=== PATIENT | female | born 1975 | race Caucasian/White ===

== ENCOUNTER → 2017-12-09 16:53 | Outpatient (CLI) | payer OTHER, SELFPAY | PROVIDERS: Family Provider Internal Medicine; PCP Internal Medicine; Visit Provider Chiropractor | DX: M54.12 Radiculopathy, cervical region (principal) | CPT/HCPCS: 72050 ==

== ENCOUNTER → 2017-12-16 16:54 | Outpatient (CLI) | payer OTHER, SELFPAY | PROVIDERS: Family Provider Internal Medicine; PCP Internal Medicine; Visit Provider Chiropractor | DX: M54.12 Radiculopathy, cervical region (principal) | CPT/HCPCS: 72141 ==

== ENCOUNTER 2018-08-21 13:08 | Emergency (ER) | payer OTHER, SELFPAY ==
[2018-08-21 13:10] VITALS: BP 139/83; PULSE 83; RESP 20; TEMP 37.1; O2SAT 98; BMI 45.6
--- NOTE | 2018-08-21 13:18 | EKG12_ITS ---
Test Reason : CP Blood Pressure : / mmHG Vent. Rate : 078 BPM Atrial Rate : 078 BPM P-R Int : 160 ms QRS Dur : 080 ms QT Int : 382 ms P-R-T Axes : 044 -31 042 degrees QTc Int : 435 ms Normal sinus rhythm Left axis deviation Low voltage QRS Septal infarct , age undetermined Abnormal ECG Confirmed by VISHNU PEARSON, KAJAL ([id number]), city editor DALE ESPINAL ([id number]) on 08/24/2018 9:57:09 AM Referred By: MILO
[2018-08-21 13:38] LABS: Absolute Neutrophil Count 4.2 X10^3/uL (2.0-7.7); Basophil# 0.04 X10^3/uL; Basophil% 0.6 % (0-1); Eosinophil# 0.27 X10^3/uL; Eosinophils% 3.9 % (0-5); Hematocrit 44.4 % (37-47); Hemoglobin 14.2 g/dl (12.0-15.0); Lymphocyte % 27.5 % (19-41); Mean Corpuscular Hgb 27.7 pg (27.0-32.0); Mean Corpuscular Volume 86.7 fL (81-99); Monocyte# 0.44 X10^3/uL; Monocyte% 6.4 % (0-10); Neutrophil # 4.24 X10^3/uL (2.7-7.7); Neutrophil % 61.5 % (47-70); Platelet Count 293 K/mm3 (150-450); RBC Distribution Width CV 17.1 % (11.6-14.6); RBC Distribution Width SD 54.1 fl (35.1-43.9); Red Blood Count 5.12 M/mm3 (4.2-5.4); White Blood Count 6.9 K/mm3 (4.4-11.0)
[2018-08-21 13:40] LABS: POSITIVE COUNT NO; POSITIVE DIFFERENTIAL NO; POSITIVE MORPHOLOGY NO
[2018-08-21 13:49] LABS: Internal QC Validated? YES +Cl - CLEAR BKGD; Pregnancy, Serum, hCG Quali. NEGATIVE Negative
[2018-08-21 13:53] LABS: Anion Gap 1 (5-15); BUN 9 mg/dL (7-18); BUN/Creat Ratio 14.6 RATIO (10-20); Calcium,Total 8.7 mg/dL (8.5-10.1); Chloride 108 mmol/L (98-107); Creatinine, Serum 0.62 mg/dL (0.55-1.02); EST Glomerular Filtration Rate 112 mL/min (>60); Est Glom Filt Rate - Afr Amer 135 mL/min (>60); Estimated Creatinine Clearance 104.19 ml/min; Glucose 114 mg/dL (74-106); Potassium 4.1 mmol/L (3.5-5.1); Sodium Level 136 mmol/L (136-145)
--- NOTE | 2018-08-21 15:05 | RAD_ITS ---
STUDY: X-RAY CHEST REASON FOR EXAM: Female, 43 years old. 4 month history of cough. TECHNIQUE: Single AP portable view of the chest. COMPARISON: None. FINDINGS: The lungs are clear and expanded. There is no demonstrated pleural abnormality. Normal size heart. Normal mediastinum and kamron. Normal visualized pulmonary arteries. Normal visualized aortic arch and descending thoracic aorta. Normal visualized thoracic spine. Normal visualized ribs, clavicles, and shoulders. There is no demonstrated abnormality of the visualized soft tissue structures of the upper abdomen. RAD/Chest 1 View (Portable) IMPRESSION: Normal x-ray examination of the chest. Electronically Signed: Gurvinder Carpio, at 15:21 EDT , Service support ,
--- NOTE | 2018-08-21 15:06 | US_ITS ---
STUDY: ABDOMINAL ULTRASOUND - RIGHT UPPER QUADRANT REASON FOR VISIT: Female, 43 years old. Right upper quadrant pain. TECHNIQUE: Ultrasound evaluation of the right upper quadrant was performed with real-time and static bass-scale imaging. TECHNICAL QUALITY: Adequate. COMPARISON: None. FINDINGS: Liver: The liver measures 23.4 cm. There is increased echogenicity consistent with fatty infiltration. The bile ducts are within normal limits. There is hepatic color flow. The direction of portal flow is hepatopetal. There is no demonstrated mass lesion. Gallbladder: Normal distended gallbladder. The gallbladder wall measures 2 mm. There is a negative sonographic Valle's sign. There is no pericholecystic fluid. There are no gallstones. Common Bile Duct (C.B.D.): The common bile duct measures 3 mm. Pancreas: The pancreatic head and body are within normal limits. The pancreatic tail is not visualized due to bowel gas. There is no demonstrated pancreatic mass or cyst. Right Kidney: Normal size of the right kidney. The right kidney measures 12.4 cm. Normal renal cortex. There is no demonstrated renal mass or cyst. There is no right hydronephrosis. US/Gallbladder IMPRESSION: Enlarged, fatty liver. No focal hepatic lesions identified. Normal gallbladder. Electronically Signed: Ubaldo Maier, at 16:22 EDT Tel , Service support ,
--- NOTE | 2018-08-21 15:08 | ED.VISSUMM ---
- ER Visit Summary Date of Service: 08/21/18 Chief Complaint: Right upper quadrant pain History of Present Illness: The patient is a 43 F with right upper quadrant pain for the past 3 days. She reports poor appetite and not wanting to eat. She denies vomiting. She had mild diarrhea. She reports having pneumonia for the past 4 months. She told her PCP it hurts to breathe and was sent to the ER for possible blood clot. Patient does still have her gallbladder. She states she never had trouble with her gallbladder in the past. Physical Examination: Vital signs unremarkable. Patient lying in bed no acute distress. Head neck examination unremarkable. Heart is regular rate and rhythm. Lung sounds are clear. Abdomen is soft with focal tenderness in the right upper quadrant. No guarding or rebound. Hypoactive bowel sounds are present throughout. Test Results: EKG is sinus at 78 with no sign of acute ischemia. Portable chest x-ray is normal. CBC and chemistry studies remarkable only for glucose of 114. LFTs and lipase normal. Urinalysis does show glucose but no sign of infection. D-dimer is normal at 0.27. Right upper quadrant ultrasound reveals normal gallbladder. No pericholecystic fluid or gallstones noted. No other acute findings noted. Emergency Department Course and Treatment: Patient was treated with morphine, Zofran, and IV fluids. On repeat evaluation pain is improved. She will be given prescriptions for Hannah and Zofran. She is already on an antacid. She will follow with her primary care physician for possible HIDA scan. Treatment Plan: [] Disposition: Discharge Impression: Abdominal pain, uncertain etiology This note was generated with [employer] dictation software. It may contain incorrect words, spelling, and punctuation that were not noted in review of the chart prior to signing ED Disposition - Plan for ED Patient: Disposition: Home or Assisted Living Instructions: ED Abdominal Pain Unkn Cause Prescriptions: Hydrocodone Bitart/Apap 5-325 [Hannah 5MG-325MG] 1 tablet PO Q6H PRN PRN 3 Days #10 tablet PRN Reason: Pain Ondansetron [Zofran Odt] 4 mg PO Q8H PRN PRN #10 tablet PRN Reason: Nausea Referrals: Domonique Mcdaniel MD [Primary Care Provider] - As soon as possible
[2018-08-21 15:42] LABS: D-Dimer Quantitative (DVT/PE) 0.27 FEU/ug/m (0.27-0.49)
[2018-08-21] MEDS: 0.9% Normal Saline 1,000 ML 150 ML IV (15:42)
[2018-08-21] MEDS: Ondansetron 4 MG/2 ML Vial IV (15:43)
[2018-08-21] MEDS: Morphine 4 MG/ML Syringe IV (15:43)
[2018-08-21 15:46] VITALS: BP 129/89; PULSE 77; PULSE 78; RESP 16; TEMP 36.7; O2SAT 97
[2018-08-21 15:54] LABS: AST(SGOT) 18 U/L (15-37); Alanine Aminotransfer ALT/SGPT 35 U/L (13-56); Albumin, Serum 3.4 g/dL (3.2-5.0); Alkaline Phosphatase 47 U/L (45-117); Globulin 3.8 g/dL (2.2-4.2); Lipase 91 U/L (73-393); Protein, Total 7.2 g/dL (6.4-8.2)
[2018-08-21 16:10] LABS: Bacteria 0 SEEN /hpf (None Seen); Mucous, Urine 0 SEEN /hpf (<or=2+); Red Blood Cells-Urine 0 SEEN /hpf (0-5); Squamous Epithelial Cells - UA 0 SEEN /hpf (5-10); White Blood Cells 0 SEEN /hpf (0-5)
[2018-08-21 16:12] LABS: Color, Urine Yellow (Yellow); Glucose, Dipstick 1000 mg/dl (Normal); Ketone-Dipstick Negative (Negative); Leukocyte Esterase-Dipstick 25 /ul (Negative); Nitrite-Dipstick Negative (Negative); Occult Blood-Urine Negative /ul (Negative); Protein-Dipstick Negative (Negative); Specific Gravity, Urine 1.015 (1.002-1.030); Urine Bilirubin Dipstick Negative (Negative); Urine Clarity Clear (Clear); Urine Urobilinogen Normal (Normal)
[2018-08-21 17:30] VITALS: BP 144/90; PULSE 67; RESP 16; O2SAT 99
== END 2018-08-21 17:31 | disposition home or self-care (01) ==
PROVIDERS: Emergency Provider Emergency Medicine; Family Provider Internal Medicine; PCP Internal Medicine
DX: R10.11 Right upper quadrant pain (principal); K21.9 Gastro-esophageal reflux disease without esophagitis; E11.9 Type 2 diabetes mellitus without complications; I10 Essential (primary) hypertension; Z87.891 Personal history of nicotine dependence; Z79.84 Long term (current) use of oral hypoglycemic drugs; Z79.899 Other long term (current) drug therapy
CPT/HCPCS: 71045; 76705; 80048; 80076; 81001; 83690; 84703; 85025; 85379; 93005; 96361; 96374; 96375; 99283; J7030; A4216; J2405

== ENCOUNTER 2025-01-04 14:20 | Emergency (ER) | payer OTHER, SELFPAY ==
[2025-01-04 14:23] VITALS: BP 147/95; PULSE 73; RESP 18; TEMP 36.7; O2SAT 100; BMI 36.6
--- NOTE | 2025-01-04 14:44 | EX.ED.DYSGE1 ---
HPI History of Present Illness Chief Complaint: General Illness Detail of Chief Complaint: Atraumatic bruising right lower quadrant and left lower quadrant Informant: patient Onset/Context/Timing Onset: Days (Early Tuesday morning after vomiting) Context: Sudden Onset Timing: Continuous Quality: Pain if someone touches the bruised area otherwise no pain Location: Right lower quadrant and see HPI narrative Current Severity: Gone Maximum Severity: Moderate Worsened by: Palpation Relieved by: Not touching the bruised area Associated Symptoms Associated Symptoms: 1 episode of diarrhea yesterday which is unusual for patient ti Narrative Narrative: Patient is a 49-year-old with history of achalasia, gastric paresis on no anticoagulant who presents with bruising right lower quadrant that was first noted early Tuesday morning. She has since developed a bruise left lower quadrant, laterally. The bruising in the right lower quadrant was noted after vomiting for 6 hours. She had no hematemesis or coffee-ground emesis. She has had little stool output. She has had decreased urine output. She was seen by her PCP who sent her to the emergency room for the bruising. Patient also has history of Sjogren's disease and difficult to say if she is more thirsty than normal. She states normally she has trouble moving her bowels. She had diarrhea last evening. And this has to do with her gastroparesis. She does have a history based on medication of hypercholesterolemia and type 2 diabetes. Prior similar symptoms: No Recent Illness/Hospitalization: No [facility] Medical History Diabetes Hypertension Home Medications ?Medication ?Instructions ?Recorded ?Last Taken ?Type atenolol 100 mg tablet 50 mg PO DAILY 08/21/18 Unknown History cevimeline 30 mg capsule 30 mg PO TID 08/21/18 Unknown History glimepiride 4 mg tablet 2 mg PO DAILY 08/21/18 Unknown History liraglutide 0.6 mg/0.1 mL (18 mg/3 1.8 mg SQ DAILY 08/21/18 Unknown History mL) subcutaneous pen injector metformin 1,000 mg tablet 1,000 mg PO BID 08/21/18 Unknown History atorvastatin 10 mg tablet 10 mg PO DAILY 12/27/19 Unknown History azithromycin 250 mg tablet 250 mg PO QDAY #12 tabs 12/27/19 Unknown Rx biotin 1 mg capsule 1 mg PO DAILY 12/27/19 Unknown History ibuprofen 200 mg capsule 200 mg PO Q6H PRN 12/27/19 Unknown History Allergy/AdvReac Type Severity Reaction Status Date / Time cephalexin (From Keflex) Allergy Swelling Verified 12/27/19 07:22 Penicillins Allergy Anaphylaxis Verified 12/27/19 07:22 sulfamethoxazole (From Allergy Hives Verified 12/27/19 07:22 Bactrim) trimethoprim (From Bactrim) Allergy Hives Verified 12/27/19 07:22 Opioids - Morphine Analogues AdvReac Nausea Verified 01/04/25 14:23 Family History no significant family his Social History Smoking Status: Former smoker ROS ROS ED Constitutional Constitutional ED: Denies chills, fever(s), subjective or sweats Eyes Eyes: Denies blurry vision or change in vision ENT ENT ED: Denies rhinorrhea or sore throat Cardiovascular Cardiovascular: Denies chest pain or palpitations Respiratory/Chest Respiratory/Chest: Denies cough, dyspnea or dyspnea on exertion Gastrointestinal Gastrointestinal: Reports abdominal pain, diarrhea, nausea and vomiting; Denies constipation or melena Genitourinary Genitourinary ED: Reports other Details: Decreased urine output ; Denies dysuria, hematuria or urinary frequency Musculoskeletal Musculoskeletal: Denies back pain Integumentary Reports other Details: Bruising that was previously described ; Denies rash Hematologic/Lymphatic Hematologic/Lymphatic: Reports systems reviewed and no addt'l complaints, except as documented EXAM Physical Exam Const Vital Signs: 01/04/25 14:23 01/04/25 16:21 Temperature 98.1 F Temperature Source Temporal Pulse Rate 73 68 Respiratory Rate 18 Blood Pressure 147/95 H 133/81 H Blood Pressure Mean 112 98 Pulse Ox 100 100 Oxygen Delivery Method Room Air Positive well nourished and well developed Constitutional Narrative: BMI is 36.6. General Appearance ED: well developed and NAD; Negative for pallor HEENT Reports dry mucous membranes HEENT Narrative: Head is atraumatic and cephalic. Ears normal. Posterior pharynx unremarkable. Mouth ED: Yes dry mucous membranes Mouth: dry mucous membranes Eyes PERRL and EOMs intact bilaterally General Eye ED: Negative for pale conjunctiva or scleral icterus Neck no lymphadenopathy, supple and no JVD Resp normal respiratory effort Cardio regular rate and regular rhythm GI non-distended and no masses; Negative for normal to inspection, nondistended, normoactive bowel sounds or non-tender GI Narrative: Patient has a large ecchymotic area right lower quadrant there are two circular areas that are clear and raised. They appear to be slightly elevated. She also bruise noted left lower quadrant the size of a dime. Patient has no guarding or peritoneal findings. She does report tenderness over the bruised areas. Extremity normal to inspection Extremity Narrative: There are no petechiae noted. Neuro oriented x3 and CN's II-XII intact bilaterally Sensorium / Orientation: alert Skin skin turgor normal General Skin Exam: Negative for jaundice or pallor MDM MDM MDM Narrative Medical decision making narrative: Will obtain coags to see if patient has a coagulopathy. CBC to assess white count platelet count as well as H&H. Because she has had poor p.o. intake decreased urine output will obtain BMP to assess renal function, CO2 anion gap and electrolytes. Also to assess glucose since she has type 2 diabetes with poor p.o. intake. UA to assess specific gravity. Also determine if she has ketones. Lab Data Attestation: I reviewed the patient's lab results. Lab results narrative: CBC is remarked for mild anemia with normal indices. Platelet count is normal. Coags are normal. Comprehensive metabolic panel is normal. UA is remarkable for ketones. Spec gravity cellular by 1.020. Labs: Laboratory Results - last 24 hr 01/04/25 01/04/25 15:10 15:55 WBC 7.0 RBC 4.24 Hgb 11.7 L Hct 36.1 L MCV 85.1 MCH 27.6 MCHC 32.4 RDW Std Deviation 46.0 H RDW Coeff of Khalida 14.8 H Plt Count 265 MPV 10.0 Immature Gran % (Auto) 0.300 Neut % (Auto) 55.9 Lymph % (Auto) 32.6 [place] % (Auto) 7.3 Eos % (Auto) 2.9 Baso % (Auto) 1.0 Absolute Neuts (auto) 3.9 Absolute Lymphs (auto) 2.27 Nucleated RBC % 0 PT 13.2 INR 1.0 APTT 25.6 Sodium 138 Potassium 3.7 Chloride 105 Carbon Dioxide 21.9 Anion Gap 11 BUN 4 Creatinine 0.76 Estim Creat Clear Calc 103.57 Est GFR (MDRD) Non-Af 96 BUN/Creatinine Ratio 5.3 L Glucose 98 Lactic Acid 1.6 Calcium 9.1 Total Bilirubin 0.62 AST 13 ALT 10 Alkaline Phosphatase 47 Total Protein 6.5 Albumin 3.9 Globulin 2.6 Albumin/Globulin Ratio 1.5 Urine Color Yellow Urine Clarity Sl. Cloudy Urine pH 6.0 Ur Specific [place] 1.020 Urine Protein 30 H Urine Glucose (UA) Normal Urine Ketones 5 H Urine Occult Blood Negative Urine Nitrite Negative Urine Bilirubin Negative Urine Urobilinogen Normal Ur Leukocyte Esterase 100 H Treatment and Re-Evaluation :: Patient was informed of results. Since she had significant vomiting 4 hours suspect this is traumatic due to the vomiting. Discharge Plan Triage Chief Complaint: General Illness ED Provider: Ignacio Jiménez Dx/Rx/DC Orders Clinical Impression: Nausea & vomiting, Dehydration, mild, Ketosis, Traumatic ecchymosis of abdominal wall, Type 2 diabetes mellitus, Elevated blood pressure reading Instructions: ED Hematoma Prescriptions: No Action atorvastatin 10 mg tablet 10 mg PO DAILY ibuprofen 200 mg capsule 200 mg PO Q6H PRN biotin 1 mg capsule 1 mg PO DAILY azithromycin 250 mg tablet 250 mg PO QDAY Qty: 12 0RF Rx Instructions: 2 tablets today, then 1 tablet daily on days 2 through 11 atenolol 100 MG tablet 50 mg PO DAILY Patient Comments: TAKE 1/2 (ONE-HALF) OF A TABLET BY MOUTH EVERY DAY glimepiride 4 MG tablet 2 mg PO DAILY cevimeline 30 MG capsule 30 mg PO TID Patient Comments: take 1 capsule by mouth three times a day metformin 1,000 MG tablet 1,000 mg PO BID liraglutide 0.6 MG/0.1 ML pen injector 1.8 mg SQ DAILY Primary Care Provider: Domonique Mcdaniel Referrals: Domonique Mcdaniel MD [Primary Care Provider] - As Needed Print Language: Mongolian Disposition Disposition: Home, Self Care
[2025-01-04 15:18] LABS: Hematocrit 36.1 % (37-47); Hemoglobin 11.7 g/dL (12.0-15.0); Immature Granulocytes Count 0.020 X10^3/uL (0.0-0.0); Mean Corp Hgb Conc 32.4 g/dL (32-36); Mean Corpuscular Volume 85.1 fL (81-99); Mean Platelet Vol. 10.0 fl (6.2-12.0); NRBC Flagged by Analyzer 0 % (0-5); Platelet Count 265 K/mm3 (150-450); RBC Distribution Width CV 14.8 % (11.6-14.6); RBC Distribution Width SD 46.0 fl (35.1-43.9); Red Blood Count 4.24 M/mm3 (4.2-5.4); White Blood Count 7.0 K/mm3 (4.4-11.0)
[2025-01-04 15:36] LABS: Prothrombin Time (Protime)PT. 13.2 SECONDS (11.7-14.9)
[2025-01-04 15:37] LABS: Partial Thromboplast Time 25.6 Seconds (24.1-36.2)
[2025-01-04 15:59] LABS: AST(SGOT) 13 U/L (<=31); Alanine Aminotransfer ALT/SGPT 10 U/L (<=34); Albumin, Serum 3.9 g/dL (3.5-5.0); Alkaline Phosphatase 47 U/L (35-104); Anion Gap 11 (5-15); BUN 4 mg/dL (4-19); BUN/Creat Ratio 5.3 RATIO (10-20); Calcium,Total 9.1 mg/dL (7.6-11.0); Carbon Dioxide 21.9 mmol/L (21.0-32.0); Chloride 105 mmol/L (98-108); Estimated Creatinine Clearance 103.57 ml/min (50-250); Globulin 2.6 g/dL (2.2-4.2); Glucose 98 mg/dL (70-99); Potassium 3.7 mmol/L (3.3-5.1)
[2025-01-04 16:20] LABS: Color, Urine Yellow (Yellow); Glucose, Dipstick Normal (Normal); Ketone-Dipstick 5 mg/dl (Negative); Leukocyte Esterase-Dipstick 100 /ul (Negative); Nitrite-Dipstick Negative (Negative); Occult Blood-Urine Negative /ul (Negative); Protein-Dipstick 30 mg/dl (Negative); Specific Gravity, Urine 1.020 (1.002-1.030); Urine Bilirubin Dipstick Negative (Negative)
[2025-01-04 16:21] VITALS: BP 133/81; PULSE 68; O2SAT 100
[2025-01-04 17:53] VITALS: BP 131/76; PULSE 72; RESP 18; TEMP 36.6; O2SAT 98
== END 2025-01-04 17:59 | disposition home or self-care (01) ==
PROVIDERS: Emergency Provider Emergency Medicine; PCP Internal Medicine; Visit Provider Emergency Medicine
DX: R11.2 Nausea with vomiting, unspecified (principal); E88.89 Other specified metabolic disorders; E11.43 Type 2 diabetes mellitus with diabetic autonomic (poly)neuropathy; Z87.891 Personal history of nicotine dependence; R03.0 Elevated blood-pressure reading, without diagnosis of hypertension; K31.84 Gastroparesis; S30.1XXA Contusion of abdominal wall, initial encounter; E78.00 Pure hypercholesterolemia, unspecified; R86.0 Abnormal level of enzymes in specimens from male genital organs; X58.XXXA Exposure to other specified factors, initial encounter
CPT/HCPCS: 80053; 81002; 83605; 85025; 85610; 85730; 99283; A4216